=== PATIENT | female | born 1945 | race Two or more races ===

== ENCOUNTER 2020-06-08 08:16 | Outpatient (CLI) | payer OTHER | END 2020-06-08 08:22 | disposition home or self-care (01) | LOC: RX STUDY 08:16 | PROVIDERS: ATTEND Internal Medicine Gastroenterology | DX: K21.9 Gastro-esophageal reflux disease without esophagitis (principal); K44.9 Diaphragmatic hernia without obstruction or gangrene; R10.84 Generalized abdominal pain; R63.4 Abnormal weight loss ==

== ENCOUNTER 2021-09-25 09:55 | Outpatient (CLI) | payer OTHER ==
[~2021-09-25 09:55] MED LIST: TORADOL60 MG IM; VOLTAREN ARTHRI20 GM TOP
== END 2021-09-25 10:02 | disposition home or self-care (01) ==
LOC: SONOGRAMA 09:55
PROVIDERS: ATTEND Obstetrics & Gynecology Maternal & Fetal Medicine
DX: R19.09 Other intra-abdominal and pelvic swelling, mass and lump (principal)

== ENCOUNTER 2021-12-19 08:45 | Inpatient (IN) | payer OTHER ==
[~2021-12-19] VITALS: Ht 154.9 cm; Wt 68.9 kg
[2021-12-19] MEDS ORDERED: METFORMIN HCL1000 M2 PO (10:47)
[2021-12-19] MEDS ORDERED: ZIAC 5-6.25 MG1 EACH PO (10:48)
[2021-12-19] MEDS ORDERED: SINGULAIR10 MG PO (10:48)
[2021-12-19] MEDS ORDERED: NORVASC5 MG PO (10:48)
[2021-12-19] MEDS ORDERED: GABAPENTIN800 M1 PO (10:49)
[2021-12-19] MEDS ORDERED: ZOCOR40 MG PO (10:49)
[2021-12-19] MEDS ORDERED: NORVASC2.5 MG PO (13:09)
[2021-12-21] MEDS ORDERED: EZETIMIBE10 MG (13:15)
[2021-12-21] MEDS ORDERED: ETODOLAC500 M1 (13:15)
[2021-12-21] MEDS ORDERED: HYDRALAZINE HCL50 MG (13:15)
[2021-12-21] MEDS ORDERED: ESOMEPRAZOLE MA40 MG (13:15)
[2021-12-21] MEDS ORDERED: ACETAMINOPHEN-1 EAC2 (13:16)
[2021-12-21] MEDS ORDERED: MONTELUKAST SOD10 MG (13:16)
[2021-12-21] MEDS ORDERED: BISOPROLOL-HCT1 EAC1 (13:16)
== END 2021-12-23 13:45 | disposition home or self-care (01) | DRG 743 ==
LOC: SURH 12-21 08:45 → OB/GYN 12-21 09:03 → O/R 12-21 09:03 → SURH 12-21 14:00 → OB/GYN 12-21 19:05
PROVIDERS: ADMIT Specialist; ATTEND Specialist
PROC: 0UT70ZZ Resection of Bilateral Fallopian Tubes, Open Approach (ICD-10-PCS; 2021-12-21)
PROC: 0UT20ZZ Resection of Bilateral Ovaries, Open Approach (ICD-10-PCS; 2021-12-21)
PROC: 0UT90ZZ Resection of Uterus, Open Approach (ICD-10-PCS; principal; 2021-12-21 14:00)
DX: D25.1 Intramural leiomyoma of uterus (principal); Z20.822 Contact with and (suspected) exposure to COVID-19; N84.0 Polyp of corpus uteri; N72 Inflammatory disease of cervix uteri